=== PATIENT | female | born 1975 | race African-American/Black ===

== ENCOUNTER 2016-09-26 12:59 | Emergency (ER) | payer OTHER ==
[2016-09-26 13:10] LABS: URINE SOURCE CLEAN CATCH
[2016-09-26 13:17] LABS: URINE APPEARANCE CLEAR; URINE BILIRUBIN NEG (NEG); URINE BLOOD 3+ (NEG); URINE COLOR YELLOW; URINE GLUCOSE NEG (NEG); URINE KETONE NEG (NEG); URINE LEUKOCYTE ESTERASE NEG (NEG); URINE NITRATE NEG (NEG); URINE PROTEIN NEG (NEG); URINE SPECIFIC GRAVITY 1.017 (1.003-1.035)
[2016-09-26 13:19] LABS: CULTURE INDICATED? YES; URBCS1 AUWI 25-50 /[HPF] (0-2); URINE BACTERIA AUWI 2+ (NEGATIVE); URINE SQUAMOUS EPITHELIAL CELL OCC /[HPF]
[2016-09-29 08:11] LABS: CHLAMYDIA TRACH Not Detected (Not Detected); N GONOR Not Detected (Not Detected)
[2017-02-20] MEDS ORDERED: ANTIBIOTIC (11:39)
== END 2016-09-26 14:45 | disposition home or self-care (01) ==
LOC: CFTX 12:59
PROVIDERS: Physician Assistant
DX: N39.0 Urinary tract infection, site not specified (principal); F32.9 Major depressive disorder, single episode, unspecified; Z87.442 Personal history of urinary calculi; Z98.51 Tubal ligation status; Z87.891 Personal history of nicotine dependence; Z91.040 Latex allergy status
CPT/HCPCS: 81003; 84703; 87086; 87491; 87591; 87808; 87905; 96372; 99283; J0696; J1885

== ENCOUNTER 2016-11-14 12:57 | Emergency (ER) | payer OTHER ==
--- NOTE | ~2016-11-14 | CT4 ---
[facility] A Service of [facility] RADIOLOGY TEXT RESULTS PATIENT: LENA WEBB LOCATION: [facility] : [birth year] UNIT #: [id number] AGE: [address]: Barrett Madsen MD SEX: F ORDER DR: [id number] [facility] [address] [place], [place] [address] [id number] E MR#: [id number] Acc #: [id number] NAME: LENA WEBB : 1975 SEX: F STUDY DATE/TIME: 11/14/2016 15:51 UNIT: LANA ROOM: STUDY DESCRIPTION: CT Abd and Pelv Wo Cont Attending Physician: Earle Madsen M.D. Referring Physician: Joey Hampton M.D. Ordering Physician: Karl Wyatt M.D. Primary Care Physician: Generic Doctor Not In System MEDICAL IMAGING REPORT This report is preliminary unless electronic signature is present EXAM CT abdomen and pelvis without contrast. HISTORY Left flank pain. Kidney stones. Symptoms for [address] exam was performed with one or more of the following radiation dose reduction techniques: automatic exposure control, adjustment of mA and/or kV according to patient size, and iterative reconstruction. FINDINGS CT abdomen and pelvis was performed without contrast. CT ABDOMEN. There is a 12 mm calcified pulmonary granuloma in the posterior right lower lobe. Small hiatal hernia. Fat infiltration of the liver. No hepatic mass or biliary dilatation. Gallbladder is contracted. The spleen, pancreas, kidneys, and adrenal glands are normal. No renal calculi. No hydronephrosis. No bowel dilatation. Normal caliber abdominal aorta. CT PELVIS. The uterus and adnexa are unremarkable. Urinary bladder is normal. No bladder calculi. No bowel dilatation. IMPRESSION 1. No acute findings in the abdomen or pelvis. 2. No urinary calculi or obstruction. No bowel obstruction. 3. Normal appendix. 4. Fat infiltration of the liver. [facility] A Service of [facility] RADIOLOGY TEXT RESULTS PATIENT: LENA WEBB LOCATION: [facility] : [birth year] UNIT #: [id number] AGE: [address]: Barrett Madsen MD SEX: F ORDER DR: Dictated by... Miguel Gomez M.D. THIS IS AN ELECTRONICALLY VERIFIED REPORT Miguel Gomez M.D. at 11/14/2016 10:50 PM IAN/elizabeth TD: 11/14/2016 19:14 JOB #: [id number] MEDICAL IMAGING REPORT Page 1 of 1 COPY
--- NOTE | ~2016-11-14 | EKG ---
PATIENT: LENA WEBB UNIT #: [id number] Ventricular Rate: 71 BPM Atrial Rate: 71 BPM P-R Interval: 178 ms QRS Duration: 88 ms Q-T Interval: 372 ms QTC Calculation(Bezet): 404 ms P [place]: 26 degrees Calculated R [place]: 32 degrees Diagnosis Line: Normal sinus rhythm Diagnosis Line: Normal ECG Diagnosis Line: When compared with ECG of 04-JUN-2016 13:45, Diagnosis Line: No significant change was found Diagnosis Line: Confirmed by JODY WHITE MD ([id number]) on Diagnosis Line: 11/15/2016 11:08:15 AM INTERPRETING MD: ADITHYA
[2016-11-14 13:32] LABS: BASOPHIL% 0.3 % (0-2.5); EOSINOPHIL# 0.1 X10e3 (0-0.7); EOSINOPHIL% 0.6 % (0.0-7.0); HEMATOCRIT 37.7 % (35.0-45.0); HEMOGLOBIN 12.4 gm/dL (12.0-16.0); LYMPHOCYTE# 3.1 X10e3 (1.0-3.5); LYMPHOCYTE% 21.6 % (17.0-45.0); MEAN CELL VOLUME 91.9 FL (83-96); MEAN CORPUSCULAR HEMOGLOBIN 30.2 PG (28-34); MEAN CORPUSCULAR HGB CONC 32.8 g/dL (30-36); MEAN PLATELET VOLUME 6.4 FL (6.5-11.5); MONOCYTE# 0.5 X10e3 (0-1.0); MONOCYTE% 3.6 % (3.0-12.0); NEUTROPHIL# 10.5 X10e3 (1.5-7.1); NEUTROPHIL% 73.9 % (40-75); PLATELET COUNT 455 X10e3 (140-420); RED CELL DISTRIBUTION WIDTH 13.6 % (11.0-15.5); WHITE BLOOD COUNT 14.2 X10e3 (4.0-10.5)
[2016-11-14 13:38] LABS: DIFF IND NO
[2016-11-14 13:52] LABS: ALBUMIN SERUM 4.2 g/dL (3.5-5.0); ALKALINE PHOSPHATASE 61 U/L (32-92); ALT (SGPT) 25 U/L (10-40); AST (SGOT) 24 U/L (10-42); BILIRUBIN,TOTAL 0.6 mg/dL (0.2-2.0); BLOOD UREA NITROGEN 14 mg/dL (9-23); BUN/CREATININE RATIO 23.33; CALCIUM SERUM 9.1 mg/dL (8.4-10.2); CARBON DIOXIDE 22 mmol/L (22-31); CHLORIDE 103 mmol/L (100-111); CREATININE SERUM 0.6 mg/dL (0.6-1.4); GLOM FILT RATE Estimated 132.1 mL/min (>60); GLUCOSE FASTING 144 mg/dL (70-110); POTASSIUM 3.2 mmol/L (3.5-5.1); PROTEIN TOTAL SERUM 7.9 g/dL (6.0-8.3); SODIUM 133 mmol/L (135-145)
[2016-11-14 13:55] LABS: BILIRUBIN, DIRECT <0.1 mg/dL (0.0-0.2); BILIRUBIN,INDIRECT 0.5 mg/dL (0.0-0.9)
[2016-11-14 13:55] LABS: POC - CKMB <1.0 ng/mL (0.0-7.9); POC - TROPONIN <0.05 ng/mL (<=0.05)
[2016-11-14 18:11] LABS: URINE SOURCE CLEAN CATCH
[2016-11-14 18:21] LABS: URINE APPEARANCE CLEAR; URINE BILIRUBIN NEG (NEG); URINE BLOOD 3+ (NEG); URINE COLOR YELLOW; URINE GLUCOSE NEG (NEG); URINE KETONE NEG (NEG); URINE LEUKOCYTE ESTERASE NEG (NEG); URINE NITRATE NEG (NEG); URINE PH 6.5 (5-8); URINE PROTEIN NEG (NEG); URINE SPECIFIC GRAVITY 1.026 (1.003-1.035); URINE UROBILINOGEN 0.2 MG/DL (NEG)
[2016-11-14 18:23] LABS: URBCS1 AUWI 25-50 /[HPF] (0-2); URINE BACTERIA AUWI NEG (NEGATIVE); URINE SQUAMOUS EPITHELIAL CELL OCC /[HPF]; UWBCS1 AUWI 0-2 (0-5)
[2016-11-14 18:24] LABS: CULTURE INDICATED? NO
[2017-02-20] MEDS ORDERED: ANTIBIOTIC (11:39)
== END 2016-11-14 19:03 | disposition home or self-care (01) ==
LOC: CED 12:57
PROVIDERS: Emergency Medicine
DX: R10.32 Left lower quadrant pain (principal); Z87.442 Personal history of urinary calculi; Z91.040 Latex allergy status; F17.210 Nicotine dependence, cigarettes, uncomplicated
CPT/HCPCS: 36415; 74176; 80048; 80076; 81003; 82553; 84484; 84703; 85025; 93005; 99284

== ENCOUNTER 2017-01-05 06:42 | Emergency (ER) | payer OTHER ==
[~2017-01-05] VITALS: Ht 157.5 cm; Wt 73.0 kg
--- NOTE | ~2017-01-05 | CT4 ---
[facility] A Service of [facility] RADIOLOGY TEXT RESULTS PATIENT: LENA WEBB LOCATION: SED : 77 UNIT #: [id number] AGE: [address]: Julio C Delgadillo MD SEX: F ORDER DR: [id number] [facility] [address] [place], [place] [address] [id number] E MR#: [id number] Acc #: [id number] NAME: LENA WEBB : 1975 SEX: F STUDY DATE/TIME: 01/05/2017 09:31 UNIT: SED ROOM: STUDY DESCRIPTION: CT Abd and Pelv Wo Cont Attending Physician: Julio C Delgadillo M.D. Ordering Physician: Julio C Delgadillo M.D. Primary Care Physician: Generic Doctor Not In System MEDICAL IMAGING REPORT This report is preliminary unless electronic signature is present EXAM CT abdomen and pelvis without contrast 01/05/2017 0931 hours HISTORY 41-year-old woman complaining of diffuse abdominal pain with nausea, vomiting and diarrhea since 2200 hours last night. Burning on urination today. History of kidney stones and urethral stent. COMPARISON 11/04/1816 TECHNIQUE Helical noncontrasted images were obtained from the lung bases through the adrenal glands. Sagittal and coronal reconstructions were performed. Total exam DLP 976 mGy-cm. This CT exam was performed with one or more of the following radiation dose reduction techniques: automatic control, adjustment of mA and/or kV according to patient size, and iterative reconstruction. FINDINGS Images through the lung bases demonstrate no change in calcified granuloma right lung base. Images through the abdomen are degraded by motion artifact. There is diffuse low attenuation of the liver consistent with fatty change which is stable. The spleen is normal. I believe the pancreas is normal. The poorly defined margins are likely related to the motion artifact. The gallbladder is normal. There is no bile duct dilatation. The adrenal glands are normal. The kidneys demonstrate no obstruction. No renal or ureteral calculi are seen. No renal mass is seen. The abdominal aorta is normal in caliber. The bladder is normal. The stomach is contracted and unopacified but appears normal. There is no STS. [facility] A Service of [facility] RADIOLOGY TEXT RESULTS PATIENT: LENA WEBB LOCATION: SED : [birth year] UNIT #: [id number] AGE: [address]: Julio C Delgadillo MD SEX: F ORDER DR: small bowel distension or small bowel wall thickening. The appendix is normal. The colon is nondistended. There is no colonic wall thickening. CT pelvis demonstrates calcified phleboliths. There is no free fluid. IMPRESSION 1. The exam is degraded by mild motion artifact. No acute abnormalities are seen. No renal or ureteral calculi. 2. Stable calcified granuloma right lung base. 3. Normal appendix. 4. No renal or ureteral calculi. 5. The images of the appendix demonstrate a slightly poorly defined margins which I believe is related to motion artifact which is also seen around the liver at the similar levels. Dictated by... Krissy Muhammad M.D. THIS IS AN ELECTRONICALLY VERIFIED REPORT Krissy Muhmamad M.D. at 01/05/2017 6:56 PM ANGEL/janay TD: 01/05/2017 15:31 JOB #: [id number] MEDICAL IMAGING REPORT Page 1 of 1 COPY
[2017-01-05] MEDS ORDERED: NO MEDICATIONS (06:56)
[2017-01-05 07:53] LABS: BASOPHIL% 0.4 % (0-2.5); EOSINOPHIL# 0.4 X10e3 (0-0.7); EOSINOPHIL% 3.7 % (0.0-7.0); HEMATOCRIT 37.3 % (35.0-45.0); HEMOGLOBIN 12.3 gm/dL (12.0-16.0); LYMPHOCYTE% 34.4 % (17.0-45.0); MEAN CELL VOLUME 90.9 FL (83-96); MEAN CORPUSCULAR HGB CONC 32.9 g/dL (30-36); MEAN PLATELET VOLUME 6.4 FL (6.5-11.5); MONOCYTE# 0.9 X10e3 (0-1.0); MONOCYTE% 7.5 % (3.0-12.0); NEUTROPHIL# 6.2 X10e3 (1.5-7.1); PLATELET COUNT 411 X10e3 (140-420); RED CELL DISTRIBUTION WIDTH 13.5 % (11.0-15.5); WHITE BLOOD COUNT 11.5 X10e3 (4.0-10.5)
[2017-01-05 07:57] LABS: DIFF IND NO
[2017-01-05 07:58] LABS: URINE SOURCE CLEAN CATCH
[2017-01-05 08:01] LABS: URINE APPEARANCE CLEAR; URINE BILIRUBIN NEG (NEG); URINE BLOOD 3+ (NEG); URINE COLOR YELLOW; URINE GLUCOSE NEG (NORM); URINE KETONE NEG (NEG); URINE LEUKOCYTE ESTERASE NEG (NEG); URINE NITRATE NEG (NEG); URINE PROTEIN NEG (NEG); URINE UROBILINOGEN 0.2 MG/DL (NORM)
[2017-01-05 08:06] LABS: MICRO INDICATED? YES
[2017-01-05 08:11] LABS: ALBUMIN SERUM 4.4 g/dL (3.5-5.0); ALKALINE PHOSPHATASE 54 U/L (32-92); ALT (SGPT) 29 U/L (10-40); AMYLASE 30 U/L (0-46); AST (SGOT) 22 U/L (10-42); BILIRUBIN,TOTAL 0.4 mg/dL (0.2-2.0); BLOOD UREA NITROGEN 12 mg/dL (9-23); CALCIUM SERUM 9.6 mg/dL (8.4-10.2); CARBON DIOXIDE 27 mmol/L (22-31); CHLORIDE 105 mmol/L (100-111); CREATININE SERUM 0.6 mg/dL (0.6-1.4); GLOM FILT RATE Estimated 132.1 mL/min (>60); GLUCOSE FASTING 95 mg/dL (70-110); LIPASE 87 U/L (22-51); POTASSIUM 3.9 mmol/L (3.5-5.1); SODIUM 137 mmol/L (135-145)
[2017-01-05 08:16] LABS: URINE RBC 25-50 /[HPF] (0-2); URINE WBC 0-2 /[HPF] (0-5)
[2017-01-05 08:17] LABS: BILIRUBIN, DIRECT <0.1 mg/dL (0.0-0.2); BILIRUBIN,INDIRECT 0.3 mg/dL (0.0-0.9)
[2017-01-05 08:17] LABS: CULTURE INDICATED? NO; URINE BACTERIA NEG (NEG)
[2017-01-06 23:56] LABS: CHLAMYDIA TRACH Not Detected (Not Detected); N GONOR Not Detected (Not Detected)
[2017-02-20] MEDS ORDERED: ANTIBIOTIC (11:39)
== END 2017-01-05 10:11 | disposition home or self-care (01) ==
LOC: SED 06:42
PROVIDERS: Emergency Medicine
DX: A08.4 Viral intestinal infection, unspecified (principal); N76.0 Acute vaginitis; F17.210 Nicotine dependence, cigarettes, uncomplicated; Z91.040 Latex allergy status
CPT/HCPCS: 36415; 74176; 80048; 80076; 81003; 82150; 83690; 84703; 85025; 87491; 87591; 87808; 87905; 96361; 96372; 96374; 96375; 99284; J0696; J1885; J2405

== ENCOUNTER 2017-02-05 16:47 | Emergency (ER) | payer OTHER ==
[~2017-02-05 16:47] MED LIST: NO MEDICATIONS
[2017-02-05] MEDS ORDERED: NO MEDICATIONS (17:08)
[2017-02-05 17:52] LABS: URINE SOURCE CLEAN CATCH
[2017-02-05 17:55] LABS: BASOPHIL# 0.1 X10e3 (0-0.3); BASOPHIL% 0.4 % (0-2.5); EOSINOPHIL# 0.3 X10e3 (0-0.7); EOSINOPHIL% 2.5 % (0.0-7.0); HEMATOCRIT 36.2 % (35.0-45.0); HEMOGLOBIN 12.4 gm/dL (12.0-16.0); LYMPHOCYTE# 3.3 X10e3 (1.0-3.5); LYMPHOCYTE% 26.5 % (17.0-45.0); MEAN CELL VOLUME 90.5 FL (83-96); MEAN CORPUSCULAR HEMOGLOBIN 30.9 PG (28-34); MEAN CORPUSCULAR HGB CONC 34.2 g/dL (30-36); MEAN PLATELET VOLUME 6.2 FL (6.5-11.5); MONOCYTE# 0.9 X10e3 (0-1.0); MONOCYTE% 6.8 % (3.0-12.0); NEUTROPHIL% 63.8 % (40-75); PLATELET COUNT 447 X10e3 (140-420); RED CELL DISTRIBUTION WIDTH 13.3 % (11.0-15.5); WHITE BLOOD COUNT 12.6 X10e3 (4.0-10.5)
[2017-02-05 17:59] LABS: DIFF IND NO
[2017-02-05 17:59] LABS: URINE APPEARANCE HAZY; URINE BILIRUBIN NEG (NEG); URINE BLOOD 3+ (NEG); URINE COLOR DK YELLOW; URINE GLUCOSE NEG (NORM); URINE KETONE NEG (NEG); URINE LEUKOCYTE ESTERASE NEG (NEG); URINE NITRATE NEG (NEG); URINE PROTEIN 1+ (NEG); URINE SPECIFIC GRAVITY >=1.030 (1.003-1.035); URINE UROBILINOGEN 0.2 MG/DL (NORM)
[2017-02-05 18:08] LABS: MICRO INDICATED? YES
[2017-02-05 18:09] LABS: CULTURE INDICATED? YES; URINE BACTERIA 3+ (NEG); URINE MUCUS PRESENT; URINE SQUAMOUS EPITHELIAL CELL MANY /[HPF]
[2017-02-05 18:13] LABS: ALBUMIN SERUM 4.3 g/dL (3.5-5.0); BUN/CREATININE RATIO 21.66; CALCIUM SERUM 9.5 mg/dL (8.4-10.2); CREATININE SERUM 0.6 mg/dL (0.6-1.4); GLOM FILT RATE Estimated 132.1 mL/min (>60); POTASSIUM 3.2 mmol/L (3.5-5.1); PROTEIN TOTAL SERUM 8.3 g/dL (6.0-8.3)
[2017-02-09 07:27] LABS: CHLAMYDIA TRACH Not Detected (Not Detected); N GONOR Not Detected (Not Detected)
[2017-02-20] MEDS ORDERED: ANTIBIOTIC (11:39)
== END 2017-02-05 19:15 | disposition home or self-care (01) ==
LOC: SED 16:47
PROVIDERS: Nurse Practitioner Family
DX: N89.8 Other specified noninflammatory disorders of vagina (principal); N39.0 Urinary tract infection, site not specified; F17.200 Nicotine dependence, unspecified, uncomplicated; Z91.040 Latex allergy status
CPT/HCPCS: 36415; 80053; 81003; 83690; 84703; 85025; 87086; 87210; 87491; 87591; 87808; 87905; 96372; 99284; J1885